=== PATIENT | male | born 1960 | race Caucasian/White ===

== ENCOUNTER → 2024-06-22 11:33 | Outpatient (REF) | payer SELFPAY ==
[2024-06-22 12:56] LABS: Hepatitis B Surface Antigen Negative (Negative)
[2024-06-22 13:05] LABS: HIV Combo Negative (Negative)
[2024-06-22 13:13] LABS: Hepatitis C Antibody Negative (Negative)
== END ==
LOC: CLAB 11:33
PROVIDERS: ATTENDING PHYSICIAN Surgery
DX: Z77.21 Contact with and (suspected) exposure to potentially hazardous body fluids (principal)
CPT/HCPCS: 82365; 86803; 87340; 87389

== ENCOUNTER 2024-07-02 12:38 | Inpatient (IN) | payer MEDICARE, BC, SELFPAY ==
[2024-07-02] VITALS (19 sets, daily range): BP systolic 86–115; BP diastolic 52–65; BMI 26.5; BMI 26.3
--- NOTE | 2024-07-02 09:13 | ED.GENMED ---
History of Present Illness
General
Chief Complaint: Urinary Symptoms
Source: patient
Time Seen by Provider: 07/02/24 08:47
History of Present Illness
History of Present Illness:
63yoM with a history of hyperlipidemia and kidney stones presenting with his for evaluation of a fever. Patient had a double ureteral stent placement [address] York. He had a Ayala catheter in place up until 6 days ago. He started
to feel unwell 2 days ago. He is presenting with fevers up to 101.8 at home with associated rigors. He also reports R sided flank pain with urination. He has not urinated much over the past 48 hours and is only able to urinate small dribbles at a
time. Additionally, he has not been eating or drinking much since his symptoms began.
Urine culture from 06/07/24 grew out mccollum sensitive enterococcus faecalis. He was on Macrobid up until his catheter was removed earlier this week.
Phy Exam
Physical Exam
Physical Exam:
Ill appearing, pale, non-toxic
General Physical Exam
General Presentation: mild distress
General age: appears stated age
General Skin: warm and dry
General Mental: alert
ENT Exam
ENT Exam: normocephalic
Cardiovascular Exam
Cardiovascular Exam: tachycardia
Pulmonary Exam
Pulmonary Exam: lungs clear, no respiratory distress, no rales, no crackles and no wheezing
Gastrointestinal Exam
Gastrointestinal Exam: soft, non distended and tender (+Tenderness to suprapubic region. No rebound or guarding. )
[place] Coma Scale
Eye Opening: Spontaneous
Verbal Response: Oriented
Motor Response: Obeys Commands
GCS Total Score: 15
Skin Exam
Skin Exam: warm/dry
Psychiatric Exam
Psychiatric Exam: normal mood/affect
Sepsis
Sepsis Screening
Sepsis Assessment: Severe Sepsis
Sepsis Screening: Lactate >2mmol/L
Sepsis Screen
Sepsis Screen: Severe Sepsis
Date: 07/02/24
Time: 14:48
Course
Orders/Labs/Results
Orders:
Orders
07/02/24 08:56
Bladder Scan- Treatment ONCE
Cardiac Monitoring- Treatment ONCE
Ayala Placement- Treatment ONCE
Reason for insertion: Acute Retention
07/02/24 08:57
Electrocardiogram (*1) Urgent
Reason for Study: Other
Other Reason for Exam: sepsis
EKG- Treatment ONCE
0.9% Sodium Chloride 1000 ml [Nss] 2,000 ml IV BOLUS
07/02/24 08:58
CT Abd/pelvis W Iv Cont Urgent
Comment:
Reason For Exam: R flank pain, fever, s/p ureteral stent placement
Acetaminophen [Tylenol] 1,000 mg PO NOW STA
07/02/24 09:04
Complete Blood Count/With Diff Urgent
Lactic Acid Q4H
Comment: CANCEL 2nd LACTIC ACID IF 1st LACTIC ACID IS LESS THAN 2
Manual Differential Urgent
PTT Urgent
Prothrombin Time Urgent
Blood Culture Routine
ROLAND Source: Blood/Venous
Specimen Description:
Blood Culture Urgent
ROLAND Source: Blood/Venous
Specimen Description:
07/02/24 09:25
Comprehensive Metabolic Panel Urgent
Procalcitonin Urgent
07/02/24 09:39
Cefepime HCl [Maxipime] 2,000 mg IV NOW STA
07/02/24 10:22
Urinalysis Reflex To Culture Urgent
Date Specimen was Collected: 07/02/24
Time Specimen was Collected: 10:21
Urine Microscopic Reflex Cult Urgent
Urine Culture Urgent
ROLAND Source: U
Specimen Description:
Date Specimen was Collected: 07/02/24
Time Specimen was Collected: 10:21
07/02/24 11:01
Vancomycin [Vancocin] 2,000 mg 0.9% Sodium Chloride 500 ml [Nss] 500 ml IV NOW
07/02/24 11:24
0.9% Sodium Chloride 500 ml [Nss] 500 ml IV BOLUS
07/02/24 12:14
Admit/Transfer Patient As Directed
Co-Sign Provider:
Level of Care: Inpatient admission
Assign to:: IMU- Intermediate Care
Physician / Group: [facility]
Diagnosis: Sepsis, Pyelonephritis
Reason for Hospitalization: Sepsis, Pyelonephritis
Expected length of stay greater than two midnights?: Yes
ELOS- Estimated Length of Stay in days: 3
I certify the patient meets the requirements for IP care: Yes
PRN Pain Medication Management As Directed
May give lesser potent ordered pain med per pt: Yes
preference::
Protocol:: Medication orders for pain may be administered in a
manner that supports deferring to patient preference
when the pt is:
- Requesting an ordered lesser potent pain medication.
Least to most potent pain medications are defined
as: acetaminophen < NSAID < tramadol < opioids
(morphine, oxycodone, hydromorphone).
- Requesting a lesser dose of the same medication IF
ORDERED.
- Requesting a less intrusive route of administration
if both routes are prescribed by the provider (PO <
IV).
07/02/24 12:15
Code Status As Directed
Resuscitation Status: Full Code
07/02/24 13:14
Lactic Acid Q4H
Comment: CANCEL 2nd LACTIC ACID IF 1st LACTIC ACID IS LESS THAN 2
Abnormal Lab Results
07/02/24 07/02/24 07/02/24
09:04 09:25 10:22
WBC 24.3 H 10^3/uL
(4.8-10.8)
RBC 4.45 L 10^6/uL
(4.70-6.10)
Hct 38.4 L %
(39.0-52.0)
Abs Neuts (Manual) 21.8 H 10^3/uL
(1.4-6.5)
Band Neutrophils 16 H %
(0-3)
Lymphocytes (Manual) 3 L %
(20-51)
PT 17.0 H Sec
(11.4-14.6)
BUN 36 H mg/dl
(9-20)
Glucose 142 H mg/dl
(70-99)
Lactic Acid 2.6 H mmol/L
(0.7-2.0)
Total Protein 6.2 L g/dl
(6.3-8.2)
Procalcitonin 4.92 H* ng/ml
(0.0-0.25)
Ur Occult Blood Reflex 4+ A
(Negative)
Leukocyte Esterase Rfl 2+ A
(Negative)
Urine RBC >100 A /HPF
(0-2)
Urine WBC (Reflex) 40-50 A /HPF
(0-5)
Urine Bacteria (Reflex) Moderate A
(Negative)
Urine Albumin (Reflex) 1+ A
(Neg - Trace)
07/02/24 09:04
07/02/24 09:25
Vital Signs
Initial and Last Documented VS:
Initial Vital Signs
Temp Pulse Resp BP Pulse Ox
103 F H 102 18 94/61 95
07/02/24 08:42 07/02/24 08:42 07/02/24 08:42 07/02/24 08:42 07/02/24 08:42
Last Documented Vital Signs
Temp Pulse Resp BP Pulse Ox
99.1 F 85 18 98/65 97
07/02/24 14:00 07/02/24 11:27 07/02/24 11:27 07/02/24 11:27 07/02/24 11:27
MDM/Problems Addressed
Differential Diagnosis Includes:
63yoM here with fever, rigors, and decreased urine output x 2 days. Also having R flank pain with urination. Recent bilateral ureteral stent placement 11 days ago. He is febrile to 103 on arrival. BP 94/61. Remainder of vitals stable. He is ill
appearing but non-toxic. Differential diagnosis includes but is not limited to: UTI, pyelonephritis, infected stone, sepsis, stent malfunction
Initial ED plan: Check septic workup including lactate, procalcitonin, blood cultures. Will place Ayala catheter given urinary retention symptoms. Check CT abdomen. Tylenol and 2L IV fluid bolus ordered.
*Critical Care Note
Total Time (30-74mins, 75-104mins- exclusive of procedures): Not Applicable
Update Note
Update Note:
Labs reveal a WBC of 24 with 16% bands. Lactate 2.6. Procal 4.9. UA with 40-50 WBC and moderate bacteria. CT shows evidence of R pyelonephritis. No hydronephrosis seen. IV cefepime and vancomycin ordered. He received 30cc/kg of IV fluids. Case
discussed with urology and he was admitted for further management.
ED Attending Note
-
Portions of this chart may have been created with voice recognition software.� Occasional wrong word or��sound alike� substitutions may have occurred due to the inherent limitations of voice recognition software.
Discharge Plan
Departure
Patient Disposition: Admit
Date of Disposition: 07/02/24
Time of Disposition: 11:26
Presentation/result/management discussed w/ accepting MD/DO: Hospitalist
Discharge Problem:
Pyelonephritis of right kidney, Sepsis
Interventions
Interventions:
*Risk Screen - Suicide Last Done: 07/02/24 09:25
*General Assessment Last Done: 07/02/24 09:25
*Neglect/Abuse Screening Last Done: 07/02/24 09:25
*ED COVID-19 Vaccine History Last Done: 07/02/24 14:26
ED-Male Genitourinary Assessment Last Done: 07/02/24 09:25
[2024-07-02] MEDS: NSS 2000 IV (09:23)
[2024-07-02 09:31] LABS: Lactic Acid 2.6 mmol/L (0.7-2.0)
[2024-07-02 09:36] LABS: APTT 27.8 Sec (23.4-35.0)
[2024-07-02 09:37] LABS: Hematocrit 38.4 % (39.0-52.0); Hemoglobin 13.8 g/dL (13.0-18.0); Mean Corp Hgb Conc. 35.9 g/dL (33.0-37.0); Mean Corpuscular Volume 86.3 fL (80.0-94.0); Mean Platelet Volume 9.4 fL (7.4-10.4); Platelet Count 190 10^3/uL (130-400); Red Blood Cell Count 4.45 10^6/uL (4.70-6.10); Red Cell Dist. Width 12.2 % (11.5-14.5); White Blood Cell Count 24.3 10^3/uL (4.8-10.8)
[2024-07-02 09:52] LABS: Absolute Neutrophils -Man Diff 21.8 10^3/uL (1.4-6.5); Band Neutrophils 16 % (0-3); Lymphocytes 3 % (20-51); Monocytes 7 % (2-9); Platelets Checked Yes; Segmented Neutrophils 74 % (42-75)
[2024-07-02 09:53] LABS: Normal RBC Morphology Yes; Total Cells Counted 100
[2024-07-02 10:05] LABS: ALT (SGPT) 26 U/L (0-50); AST (SGOT) 29 U/L (17-59); Albumin 3.8 g/dl (3.5-5.0); Alkaline Phosphatase 47 U/L (38-126); Blood Urea Nitrogen 36 mg/dl (9-20); Calcium 9.3 mg/dl (8.4-10.2); Carbon Dioxide 22 mmol/L (22-30); Chloride 103 mmol/L (98-107); Estimated Creatinine Clearance 59 ml/min; Glucose 142 mg/dl (70-99); Potassium 4.2 mmol/L (3.5-5.1); Sodium 137 mmol/L (135-145); Total Protein 6.2 g/dl (6.3-8.2); eGFR > 60.00
[2024-07-02] MEDS: MAXIPIME 2000 MG IV ×2 (10:13→18:38)
[2024-07-02 10:16] LABS: Procalcitonin 4.92 ng/ml (0.0-0.25)
[2024-07-02] MEDS: TYLENOL 1000 MG PO (10:23)
[2024-07-02 10:34] LABS: Urine Albumin 1+ (Neg - Trace); Urine Bilirubin Negative (Negative); Urine Character Slightly Cloudy (Clear); Urine Color Amber; Urine Glucose Negative (Negative); Urine Ketone Negative (Negative); Urine Leukocyte 2+ (Negative); Urine Nitrite Negative (Negative); Urine Occult Blood 4+ (Negative); Urine Specific Gravity 1.025 (<1.030); Urine Urobilinogen Negative (Neg - 1+)
[2024-07-02 10:47] LABS: Urine Mucus Few; Urine Squamous Cell 0-2 /LPF (Few)
[2024-07-02 10:48] LABS: Urine Amorphous Seen; Urine Red Blood Cell >100 /HPF (0-2); Urine White Cell 40-50 /HPF (0-5)
[2024-07-02 10:49] LABS: Urine Bacteria Moderate (Negative)
[2024-07-02] MEDS: VANCOCIN 540 MG IV (11:24)
--- NOTE | 2024-07-02 11:51 | CON.MD ---
Consultation - Medical
-
see dictated note
pt with known sig BPH/hx of prostate cancer/recent cysto- left ureteroscopy-stone treatment with stent and right ureteral stent placement in prep for furture stone procedure
required post op davies due to hematuria/prostate irritation
since davies removal- has had sig urgency/frequency and some flank pain
this am developed high fever
seen in ER- febrile/elevated WBC and lactic acid
davies placed- 150cc of concentrated urine
ct scan c/w with right pyelo- no hydro on either side
plan
urosepsis
stents in good position at this time
continue davies and med support
will follow
--- NOTE | 2024-07-02 12:17 | HPS.HSE ---
Family Physician
-
Family Physician: NOT KNOW UNKNOWN - PT DOES
Chief Complaint
-
Flank Pain, Chills
History of Present Illness
Patient is a 63y M with PMH significant for kidney stones and recent bilateral ureteral stents who presents to ED complaining of flank pain, nausea and fevers / chills. Patient underwent bilateral ureteral stents on 06/[address] York.
Following the procedure, he noted some bilateral flank discomfort. He had Ayala in place post-op until Wednesday of this week when it was removed. After Ayala removal, patient noted some difficulty urinating. He states that he had to strain to
produce small volumes of urine. He had flank pain / spasms associated with urination.
Wednesday evening, patient developed shaking chills and sweats. He had nausea but no emesis. He attempted to improve his symptoms with Tylenol; however, his symptoms persisted prompting him to present to the ED today for evaluation.
Medical History
Past Medical History
Past Medical History: Reports Other
Additional Past Medical History:
Nephrolithiasis
Chronic Prostatitis
Dyslipidemia
Past Surgical History: Reports Other
Additional Past Surgical History:
T&A
Bilateral Ureteral Stents (06/22/24)
Social History
Tobacco: Non-smoker
Alcohol: None
Drug: None
Personal:
Living: With Family
Family History
Family History: Not pertinent
Allergies / Home Medications
Allergies reflects when Allergies were last updated in [facility].
Home Medications with original date entered in [facility]
Allergy/Medication List:
Allergies
Allergy/AdvReac Type Severity Reaction Status Date / Time
levofloxacin Allergy Anaphylaxis Verified 07/02/24 08:43
Home Medications
Prostagenix 1 cap PO DAILY 07/02/24
acetaminophen 500 mg tablet (Tylenol Extra Strength) 1,000 mg PO Q6HPRN PRN mild pain 07/02/24
atorvastatin 10 mg tablet 10 mg PO DAILY 07/02/24
tamsulosin 0.4 mg capsule 0.4 mg PO HS 07/02/24
therapeutic multivitamin 1 tab PO DAILY 07/02/24
Review of Systems
-
History Source: Patient
A 12 point ROS was completed and negative except as noted: Yes
Constitutional: Reports Fever, Fatigue and Chills
EENT: Denies Sore Throat
Respiratory: Denies Cough or Trouble Breathing
Cardiac: Denies Chest Pain or Palpitations
Abdomen/GI: Reports Nausea; Denies Abdominal Pain, Vomiting, Diarrhea or Constipated
: Reports Dysuria, Flank Pain and Difficulty Voiding; Denies Frequency, Incontinence or Bleeding
Musculoskeletal: Denies Edema
Neurological: Denies Dizzy or Headache
Psych: Denies Depression or Anxiety
Physical Exam
Vital Signs
Vital Signs
Temp Pulse Resp BP Pulse Ox
103 F H 85 18 98/65 97
07/02/24 08:42 07/02/24 11:27 07/02/24 11:27 07/02/24 11:27 07/02/24 11:27
Physical Exam
General: Other (63y M in no acute distress.)
HEENT: Moist mucous membranes and PERRLA
Respiratory: Clear; No Wheezes, Rales or Rhonchi
Cardiac: S1/S2 and Regular Rhythm; No Murmur
GI: Soft, Non Tender, Non Distended and Normal Bowel Sounds
Genito-urinary: No costovertebral tender
Musculoskeletal: No Clubbing, No Cyanosis and No Edema
Neuro: AO x 3
Laboratory Results
-
07/02/24 09:04
07/02/24 09:25
Laboratory Results
PT 17.0 Sec (11.4-14.6) H 07/02/24 09:04
INR 1.40 07/02/24 09:04
APTT 27.8 Sec (23.4-35.0) 07/02/24 09:04
Lactic Acid 2.6 mmol/L (0.7-2.0) H 07/02/24 09:04
Total Bilirubin 1.0 mg/dl (0.2-1.3) 07/02/24 09:25
AST 29 U/L (17-59) 07/02/24 09:25
ALT 26 U/L (0-50) 07/02/24 09:25
Alkaline Phosphatase 47 U/L (38-126) 07/02/24 09:25
Impression/Plan
-
A/P: Patient is a 63y M with PMH significant for recent bilateral ureteral stents who presents to ED complaining of flank pain and chills.
Right Pyelonephritis
Sepsis secondary to the above
Bilateral Ureteral Stents
- Admit for further evaluation and treatment.
- Patient presents with fever, leukocytosis, hypotension and UA consistent with infection.
- IV abx with cefepime pending culture data.
- IVF support +/- pressors if needed to maintain perfusion.
- Supportive care including antipyretics, pain control, etc.
- Follow for clinical improvement.
- Appreciate Urology evaluation.
- Stents appear in good position - no evidence of obstruction / hydro.
- Ayala re-placed in the ED for 150cc dark urine.
- Continue tamsulosin. Maintain Ayala for now.
Dyslipidemia
- Can hold statin acutely. Resume on discharge.
DVT Prophylaxis: SCDs
Code Status: Full
[2024-07-02] MEDS: NSS 500 IV ×2 (13:00→22:03)
[2024-07-02 13:37] LABS: Lactic Acid 1.1 mmol/L (0.7-2.0)
[2024-07-02] MEDS: TYLENOL 650 MG PO ×2 (16:10→22:03)
[2024-07-02] MEDS: NSS 1000 IV ×2 (16:34→23:10)
[2024-07-02] MEDS: ZOFRAN 4 MG IV (17:18)
[2024-07-02] MEDS: STERILE WATER FOR INJECTION 10 ML IV (18:43)
[2024-07-02] MEDS: TORADOL 10 MG IV (18:45)
[2024-07-02] MEDS: FLOMAX 0.4 MG PO (22:03)
[2024-07-03] VITALS (14 sets, daily range): BP systolic 86–108; BP diastolic 55–73; BMI 26.8
[2024-07-03] MEDS: MAXIPIME 2000 MG IV ×2 (02:15→09:03)
[2024-07-03] MEDS: STERILE WATER FOR INJECTION 10 ML IV ×2 (02:15→09:03)
[2024-07-03 04:46] LABS: Hematocrit 30.7 % (39.0-52.0); Hemoglobin 10.8 g/dL (13.0-18.0); Mean Corp Hgb Conc. 35.2 g/dL (33.0-37.0); Mean Corpuscular Hgb 31.3 pg (27.0-31.0); Mean Platelet Volume 9.7 fL (7.4-10.4); Platelet Count 135 10^3/uL (130-400); Red Blood Cell Count 3.45 10^6/uL (4.70-6.10); Red Cell Dist. Width 12.7 % (11.5-14.5); White Blood Cell Count 15.9 10^3/uL (4.8-10.8)
[2024-07-03 05:16] LABS: Blood Urea Nitrogen 32 mg/dl (9-20); Calcium 8.1 mg/dl (8.4-10.2); Carbon Dioxide 20 mmol/L (22-30); Chloride 110 mmol/L (98-107); Estimated Creatinine Clearance 71 ml/min; Glucose 119 mg/dl (70-99); Potassium 4.4 mmol/L (3.5-5.1); Sodium 137 mmol/L (135-145); eGFR > 60.00
[2024-07-03] MEDS: NSS 1000 IV ×3 (05:32→17:57)
--- NOTE | 2024-07-03 07:00 | W.PN.URO.CBU ---
Today's Communication / Plan
-
continue medical support/davies and stents
Assessment / Plan
-
urosepsis
CT with no emergent findings
continue medical support/davies and iv antibx
await cx results
Diagnosis
-
Date of Service: July 03, 2024
-
Patient Diagnosis:
s/p cysto/left ureteroscopy/laser litho and stent- right ureteral stent
readmit with urosepsis
Subjective
-
feeling a little better
temp and wbc down
bp still low
good UO
Objective
-
Vital Signs
Temp Pulse Resp BP Pulse Ox
99.3 F 65 26 91/68 94
07/03/24 03:10 07/03/24 06:00 07/03/24 06:00 07/03/24 06:00 07/03/24 06:00
Intake and Output
07/02/24 07/03/24 07/04/24
06:59 06:59 06:59
Intake Total 1350 / 1350
Output Total 1275 / 1275
Balance 75 / 75
Intake:
IV fluids (Total) 1350 / 1350
Output:
Urine, Davies 1275 / 1275
Urine, Voided 0 / 0
Laboratory Results
07/03/24 04:21
07/03/24 04:21
Review of Systems
-
Constitutional: Fatigue and Night Sweats
Respiratory: No Symptoms
Cardiac: No Symptoms
Abdomen/GI: Nausea
: Other (davies)
Physical Exam
-
General - no acute distress
Genitalia - davies
--- NOTE | 2024-07-03 07:49 | W.PN.HOSP.TC ---
Addendum entered and electronically signed by Lev Fernandez MD 07/03/24 21:32:
Attending Addendum-
I saw and evaluated the patient. I reviewed the resident�s note and agree with findings and plan as documented in the resident�s note. Sub: feels fatigued but somewhat stronger. seen with present. febrile over last 24 hours. Full 12 point ROS
reviewed and negative except as documented Exam: Vitals reviewed in chart GEN-nad heart RRR lungs clear abd soft - davies draining clear yellow urine LE no edema
Plan:
# Septic Shock secondary to Right Pyelonephritis
- urine cx- enterococcus sens P
- DC cefepime switch to Unasyn- day #1
- weaned off Levophed
- Appreciate Urology evaluation.
- follow CBC BMP daily
# Leukocytosis
- trending down
- repeat CBC in am
# Nephrolithiasis
- 06/22-cystoscopy, ureteroscopy and laser lithotripsy with bilateral ureteral stents Dr. York
- Stents appear in good position - no evidence of obstruction / hydro.
# Urinary Retention/BPH
- cont tamsulosin
- cont Davies for now
- TOV in 24 to 48 hours
# Dyslipidemia
- hold statin acutely. Resume on discharge.
DVT Prophylaxis: SCDs
Code Status: Full
Time spent coordinating care, review of plan of care with resident, personally reviewed records in EMR, med rec, consults, notes, labs, radiology, d/w nursing � 55 mins
Original Note:
Today's Communication/Plan
-
Assessment / Plan
Assessment / Plan
Mr. Connor Kelly is a 63yo M pmh nephrolithiasis, recent b/l ureteral stent placement (06/22) who was admitted for urosepsis.
Sepsis secondary to R pyelonephritis w nephrolithiasis secondary to UTI s/p b/l ureteral stent placement
- davies replaced in ED
- U/a positive fpr uti
- urine culture: Enterococcus species
- blood cx pending
- CT: heterogeneous enhancement at upper pole of R kidney, suggests pyelonephritis. 5 mm nonobstructing calculus at lower pole of R kidney. b/l double-J ureteral stents, no hydronephrosis. b/l L5 spondylolysis, grade 1 spondylolisthesis of L5 on S1
- 1 day cefepime, switch to unasyn for Enterococcus sp. coverage
- urology following
- IV abx, IVF, antipyretics
HLD
- hold statin
DVT prophylaxis
- SCDs
Code status: FULL CODE
Diet: Regular
Anticipated Discharge: > 48 hours
Subjective/Interval History
-
Date of Service: July 03, 2024
Mr. Connor Kelly is a pleasant 63yo M h nephrolithiasis, recent b/l ureteral stent placement (06/22) who was admitted 07/02 for sepsis. Overall, he feels 'blah.' Initially had some hematuria and dysuria. Now, +fever, +SOB, +cough, +N, +D, +'wet
farts,' -V, -dysuria, -hematuria, -edema.
Objective Data
-
Labs:
Laboratory Results
07/03/24
04:21
WBC 15.9 H
Hgb 10.8 L D
Hct 30.7 L
Plt Count 135 D
Sodium 137
Potassium 4.4
Chloride 110 H
Carbon Dioxide 20 L
BUN 32 H
Creatinine 1.0
Glucose 119 H
Calcium 8.1 L
Vital Signs:
Vital Signs
Temp Pulse Resp BP Pulse Ox
99.3 F 65 26 91/68 94
07/03/24 03:10 07/03/24 06:00 07/03/24 06:00 07/03/24 06:00 07/03/24 06:00
I&O
07/02/24 07/03/24 07/04/24
06:59 06:59 06:59
Intake Total 1350 / 1350
Output Total 1275 / 1275
Balance 75 / 75
Review of Systems
-
History Source: Patient
All other systems: Reviewed and negative
Constitutional: Reports Fever; Denies Chills or Weakness
Respiratory: Reports Cough and Trouble Breathing; Denies Hemoptysis
Cardiac: Denies Chest Pain or Palpitations
Abdomen/GI: Reports Nausea and Diarrhea (unformed); Denies Vomiting or Constipated
Genitourinary: Denies Dysuria, Frequency, Urgency or Bleeding
Neuro: Denies Dizzy or Headache
Physical Exam
-
General: Well Developed, Well Nourished and Conversant
Respiratory: Accessory Resp Muscle Use
Cardiac: Regular Rhythm and S1/S2; Negative Murmur, Rub or Gallop
GI: Soft, Nontender, Nondistended and Normal Bowel Sounds
Genito-urinary: Clear Urine and Davies
Musculoskeletal: No Cyanosis and No Edema
Skin: Warm and Dry
Neuro: AO x 3
Psych: Calm
[2024-07-03] MEDS: TYLENOL 650 MG PO ×2 (11:54→22:50)
[2024-07-03] MEDS: UNASYN IV ×2 (14:04→19:45)
[2024-07-03] MEDS: TORADOL 15 MG IV (16:24)
--- NOTE | 2024-07-03 16:31 | W.PN.UPDATE ---
Update Note
Progress Note Update
Discussed CT findings w/ patient and spouse this afternoon.
No bilateral hydronephrosis w/ well-positioned stents.
Non-obstructing right renal stone noted - patient wishes to have that electively treated as outpatient.
Plan:
- Continue IV antibiotics for pyelonephritis - ascending cUTI.
- Consider voiding trial when WBC normalizes in next 24-48 hrs inpatient.
- Plan for outpatient right ureteroscopy/laser lithotripsy in 2 weeks after clearance of infection.
--- NOTE | 2024-07-03 16:40 | PTCARENOTE ---
Patient c/o abd pain/lower back pain with chills/shakes; T 99.3 oral and 99.1 axillary. [place] text sent to Dr Ureña to update and request IVFs be renewed if needed.
--- NOTE | 2024-07-03 17:17 | CM ---
Patient with Dx Sepsis secondary to R pyelonephritis w nephrolithiasis secondary to UTI s/p b/l ureteral stent placement. Davies. Receiving IVF, IV Abx.
Spoke with patient who resides with his & son in a multistory house.
The patient has been independent in ADLs and ambulation.
The patient has no DME, prior VN.
PCP - Gato Morrow
Pharmacy - [facility]
Plan offer VN if davies remains at d/c.
Plan home.
[2024-07-03 18:18] LABS: ALT (SGPT) 40 U/L (0-50); AST (SGOT) 60 U/L (17-59); Albumin 2.6 g/dl (3.5-5.0); Alkaline Phosphatase 51 U/L (38-126); Direct Bilirubin 0.3 mg/dl (0.0-0.4); Total Bilirubin 0.7 mg/dl (0.2-1.3); Total Protein 4.9 g/dl (6.3-8.2)
[2024-07-03] MEDS: FLOMAX 0.4 MG PO (21:03)
--- NOTE | 2024-07-03 21:10 | PTCARENOTE ---
Pt c/o general malaise, but otherwise denies pain. Fever 100.2, denies chills. Pt instructed to alert this RN if symptoms/pain arises. Presents with flat affect, resting in bed with IVF running through R FA. Ayala intact, draining carol urine. Call
estrada within reach. Pt ringing appropriately.
[2024-07-04] VITALS (15 sets, daily range): BP systolic 96–126; BP diastolic 56–85; PULSE 58; O2SAT 92; BMI 27.7
[2024-07-04] MEDS: NSS 1000 IV ×3 (00:32→16:53)
[2024-07-04] MEDS: UNASYN IV ×4 (02:15→19:59)
[2024-07-04 05:49] LABS: Hematocrit 30.7 % (39.0-52.0); Hemoglobin 10.7 g/dL (13.0-18.0); Mean Corp Hgb Conc. 34.9 g/dL (33.0-37.0); Mean Corpuscular Hgb 31.7 pg (27.0-31.0); Mean Corpuscular Volume 90.8 fL (80.0-94.0); Mean Platelet Volume 9.9 fL (7.4-10.4); Platelet Count 127 10^3/uL (130-400); Red Blood Cell Count 3.38 10^6/uL (4.70-6.10); Red Cell Dist. Width 12.8 % (11.5-14.5); White Blood Cell Count 10.3 10^3/uL (4.8-10.8)
[2024-07-04 06:09] LABS: INR 1.35; PT 16.5 Sec (11.4-14.6)
--- NOTE | 2024-07-04 07:42 | W.PN.HOSP.TC ---
Addendum entered and electronically signed by Lev Fernandez MD 07/04/24 21:50:
Attending Addendum-
I saw and evaluated the patient. I reviewed the resident�s note and agree with findings and plan as documented in the resident�s note. Sub: continues to feels fatigued. continues to be febrile. has not urinated on own yet after davies removal. states
he had visual hallucination this am later classified as dreams. Full 12 point ROS reviewed and negative except as documented Exam: Vitals reviewed in chart GEN-nad heart RRR lungs clear abd soft - davies - removed LE no edema
Plan:
# Septic Shock secondary to Right Pyelonephritis s/p recent instrumentation
- urine cx- enterococcus sensitivities resulted
- cont Unasyn- day #2
- weaned off Levophed
- Appreciate urology evaluation.
- follow CBC BMP daily
# RLL PNA with associated pleural effusion
- repeat CXR personally reviewed
- check procal
- c/s ID for eval
- c/s IRAD for diagnostic and therapeutic thoracentesis
- cont current abx for now
- repeat labs in am
# Leukocytosis
- resolved
- repeat CBC in am
# Transaminitis
- check acute hep panel
- repeat CMP in am and trend
- related to unasyn?
# Nephrolithiasis
- 06/22-cystoscopy, ureteroscopy and laser lithotripsy with bilateral ureteral stents Dr. York
- Stents appear in good position - no evidence of obstruction / hydro
- f/u 2-3 weeks for stent removal
# Urinary Retention/BPH
- cont tamsulosin
- DC davies 07/04
- TOV underway
# Dyslipidemia
- hold statin acutely. Resume on discharge.
DVT Prophylaxis: SCDs
Code Status: Full
Time spent coordinating care, review of plan of care with resident, personally reviewed records in EMR, med rec, consults, notes, labs, radiology, d/w nursing � 59 mins
Original Note:
Today's Communication/Plan
-
Assessment / Plan
Assessment / Plan
Mr. Connor Kelly is a 63yo M h nephrolithiasis, recent b/l ureteral stent placement (06/22) who was admitted for urosepsis.
Septic secondary to R pyelonephritis w nephrolithiasis secondary to UTI s/p b/l ureteral stent placement
- davies replaced in ED
- U/a positive fpr uti
- urine culture: Enterococcus species, sensitivities pending
- blood cx pending
- CT: heterogeneous enhancement at upper pole of R kidney, suggests pyelonephritis. 5 mm nonobstructing calculus at lower pole of R kidney. b/l double-J ureteral stents, no hydronephrosis. b/l L5 spondylolysis, grade 1 spondylolisthesis of L5 on S1
- 1 day cefepime, switch to unasyn for Enterococcus sp. coverage
- weaned off of levophed
- urology following
- IV abx, antipyretics
- IVF discontinued bc pt is hemodynamically stable and tolerating PO water intake
- cbc, bmp
Leukocytosis
- WBC 24.3 on 07/02, now 10.3. Normalized
Anemia, thrombocytopenia
- Hb 13.8 on 07/02, now 10.7
- plt 190 on 07/02, now 127
- monitor for bleeding
- monitor w cbc
Nephrolithiasis
- 06/22 - cystoscopy, uteroscopy, laser lithotripsy (10mm calculus) w b/l ureteral stents placed by Dr. York
- f/u outpatient for elective treatment of nonobstructive calculus. In 2-3 weeks after infection is cleared
Urinary retention secondary to BPH
- continue tamsulosin
- davies d/c'ed by urology
HLD
- hold statin acutely. resume on d/c
DVT prophylaxis
- SCDs
Code status: FULL CODE
Diet: Regular
Anticipated Discharge: > 48 hours
Subjective/Interval History
-
Date of Service: July 04, 2024
Mr. Connor Kelly is a pleasant 63yo M [facility] nephrolithiasis, recent b/l ureteral stent placement (06/22) who was admitted 07/02 for sepsis. Overall, he still feels 'blah.' Spiked a 100.8F fever overnight, went bradycardic to the 40s in his sleep.
+visual hallucinations: ppl in [facility] preparing a dialysis machine in a grassy field, saw his phone on his chest when it was not there, and himself traveling. No audio hallucinations. Feels a stomach discomfort, he believes it is from retained
fluid. This has improved since the davies was replaced. B/l 3/10 back pain in the thoracolumbar region. Was sharp at first, but has improved. +fever, +chills, +SOB, +cough, +N, -V, -D, -C, -dysuria, -hematuria, -DOBBINS, -lightheadedness
RN concerned he is fluid overloaded.
Objective Data
-
Labs:
Laboratory Results
07/04/24 07/04/24
05:01 05:02
WBC 10.3
Hgb 10.7 L
Hct 30.7 L
Plt Count 127 L
PT 16.5 H
INR 1.35
Vital Signs:
Vital Signs
Temp Pulse Resp BP Pulse Ox
99.5 F 49 25 113/73 95
07/04/24 03:00 07/04/24 06:00 07/04/24 06:00 07/04/24 06:00 07/03/24 20:05
I&O
07/03/24 07/04/24 07/05/24
06:59 06:59 06:59
Intake Total 1350 / 1350 1920 / 1920
Output Total 1275 / 1275 950 / 950
Balance 75 / 75 970 / 970
Review of Systems
-
History Source: Patient
All other systems: Reviewed and negative
Constitutional: Reports Fever and Chills
Respiratory: Reports Cough and Trouble Breathing
Cardiac: Reports No Symptoms
Abdomen/GI: Reports Abdominal Pain and Nausea
Genitourinary: Reports Flank Pain
Musculoskeletal: Reports Other (back pain)
Skin: Reports No Symptoms
Physical Exam
-
General: Well Developed
HEENT: Normocephalic, Atraumatic and Moist Mucous Membranes
Respiratory: Rhonchi (bibasilar)
Cardiac: Regular Rhythm and S1/S2
GI: Soft, Nontender, Nondistended and Normal Bowel Sounds
Genito-urinary: No Costovertebral Tender, Clear Urine and Davies
Musculoskeletal: No Cyanosis and No Edema
Skin: Warm, Dry, IV Access / Catheter Site and Other (skin hot over the thoracolumbar area, increased hypertonicity in paraspinal mm. and b/l QL)
Neuro: Awake and AO x 3
--- NOTE | 2024-07-04 08:26 | W.PN.URO.CBU ---
Today's Communication / Plan
-
D/c Ayala catheter this AM (ordered)
Continue tamsulosin
Continue IV antibiotics pending UCx final S/S (Enteroccous)
Plan for right ULS + left stent removal as outpatient in 2-3 weeks
D/w patient and spouse.
Assessment / Plan
-
Urosepsis - clinically improving
Right pyelonephritis
Leukocytosis - resolved
BPH
Low risk prostate cancer on active surveillance
06/22: s/p left URS/LL/stone extraction/stent placement + right stent placement
CT w/ well-positioned bilateral ureteral stents, no obstructive uropathy, non-obstructing 5 mm right renal stone.
WBC normalized
Cr WNL
Diagnosis
-
Date of Service: July 04, 2024
-
Patient Diagnosis:
Urosepsis
Right pyelonephritis
BPH
Low risk prostate cancer on active surveillance
Post Op Day:
06/22: s/p left URS/LL/stone extraction/stent placement + right stent placement
Subjective
-
Low grade fever o/n.
Feeling better in last 48 hrs.
Objective
-
Vital Signs
Temp Pulse Resp BP Pulse Ox
99.0 F 51 28 112/70 95
07/04/24 07:30 07/04/24 08:00 07/04/24 08:00 07/04/24 08:00 07/03/24 20:05
Intake and Output
07/03/24 07/04/24 07/05/24
06:59 06:59 06:59
Intake Total 1350 / 1350 1920 / 1920
Output Total 1275 / 1275 950 / 950
Balance 75 / 75 970 / 970
Intake:
IV fluids (Total) 1350 / 1350 1800 / 1800
IV piggybacks 120 / 120
Output:
Urine, Ayala 1275 / 1275 950 / 950
Urine, Voided 0 / 0
Laboratory Results
07/04/24 05:02
Physical Exam
-
General - well developed, well nourished, no acute distress
Abdomen - soft, non-tender, non-distended
Genitalia - normal, Ayala catheter in place w/ clear UOP
Skin - warm & dry with no rash
Neuro - AOx3, no motor deficits
Extremities - no clubbing, no cyanosis, no edema
Care Review
Data Reviewed
Discussed with: Nursing and Family
CT Scan: Report Pers Reviewed and Image Pers Reviewed
[2024-07-04 10:58] LABS: ALT (SGPT) 199 U/L (0-50); AST (SGOT) 155 U/L (17-59); Albumin 2.5 g/dl (3.5-5.0); Alkaline Phosphatase 214 U/L (38-126); Blood Urea Nitrogen 21 mg/dl (9-20); Carbon Dioxide 22 mmol/L (22-30); Chloride 109 mmol/L (98-107); Estimated Creatinine Clearance 89 ml/min; Glucose 133 mg/dl (70-99); Potassium 3.8 mmol/L (3.5-5.1); Sodium 140 mmol/L (135-145); Total Bilirubin 0.6 mg/dl (0.2-1.3); Total Protein 4.8 g/dl (6.3-8.2); eGFR > 60.00
[2024-07-04 13:07] LABS: COVID-19 Antigen Negative (Negative)
--- NOTE | 2024-07-04 13:15 | PN.CDI ---
CDI
- -
CDI:
Physician Documentation Request
Admit Date: 07/02/24 12:38
Dear Doctor Jim/Resident ,
Please review the following and provide your response in the progress notes.
Clinical Indicators:
Pt admitted with sepsis /UTI/ Right Pyelonephritis
Clarify which of the following accurately represents the Suspected acuity of the (Right pyelonephritis ).
Acute
Chronic
Acute on Chronic
Other
Use of terms such as suspected, likely, concern for, or probable (associated with a specific diagnosis that is being evaluated, monitored, or treated as if it exists) are acceptable and can be coded in the inpatient setting, when documented at the
time of discharge.
Thank you,
Queenie Borrego RN
CDI Specialist
[place] Text
Please use your independent medical judgment in providing your response.
--- NOTE | 2024-07-04 13:20 | PN.CDI ---
CDI
- -
CDI:
Physician Documentation Request
Admit Date: 07/02/24 12:38
Dear Doctor Jim/Resident,
Please review the following and provide your response in the progress notes.
Clinical Indicators:
Pt admitted with sepsis /UTI/ Right Pyelonephritis
Renal functions are as below /Pt did get IVFs
Laboratory Tests
07/02/24 07/03/24 07/04/24
09:25 04:21 10:36
Creatinine 1.2 1.0 0.8
Clarify which of the following accurately represents the patient's renal status:
FLORINA
Other ( please specify)
Criteria for FLORINA*
1 Increase in serum creatinine by > or = to 0.3 mg/dL (> or = to 26.5 micromol/L) within 48 hours, OR
2 Increase in serum creatinine to > or = to 1.5 times baseline, which is known or presumed to have occurred within 7 days, OR
3 Urine volume < 0.5 nL/kg/hour for six hours
Use of terms such as suspected, likely, concern for, or probable (associated with a specific diagnosis that is being evaluated, monitored, or treated as if it exists) are acceptable and can be coded in the inpatient setting, when documented at the
time of discharge.
Thank you,
Queenie Borrego RN
CDI Specialist
[place] Text
Please use your independent medical judgment in providing your response.
*Source: Kidney Disease: Improving Global Outcomes (KDIGO) 2012
--- NOTE | 2024-07-04 13:24 | PN.CDI ---
CDI
- -
CDI:
Physician Documentation Request
Admit Date: 07/02/24 12:38
Dear Doctor Jim /Resident ,
Please review the following and provide your response in the progress notes.
Clinical Indicators:
Pt admitted with Pt admitted with sepsis /UTI/ Right Pyelonephritis treated with Cefepime switched to Unasyn
Documented per ED, 'Patient had a double ureteral stent placement [address] York. He had a Ayala catheter in place up until 6 days ago. He started to feel unwell 2 days ago....'
H&P, ' He had Ayala in place post-op until Wednesday of this week when it was removed. After Ayala removal, patient noted some difficulty urinating. He states that he had to strain to produce small volumes of urine. He had flank pain / spasms
associated with urination.'
Urology Consult, ' Urosepsis after urologic instrumentation....'
Please provide a diagnosis for the above findings/Treatment :
UTI due to /related to previous Ayala catheter
UTI due to related to recent instrumentation double J stent placement
Other ( please specify )
Use of terms such as suspected, likely, concern for, or probable (associated with a specific diagnosis that is being evaluated, monitored, or treated as if it exists) are acceptable and can be coded in the inpatient setting, when documented at the
time of discharge.
Thank you,
Queenie Borrego RN
CDI Specialist
[place] Text
Please use your independent medical judgment in providing your response.
--- NOTE | 2024-07-04 14:55 | PTCARENOTE ---
Assumed care of patient at beginning of this shift from previous RN. On initial rounds patient was noted to have crackles at b/l bases and c/o abdominal discomfort. NSS infusing at 150ml/hr. Discussed with resident; patient eating and drinking. IVF
later d/c'd. Covid test ordered and negative. CXR ordered; results pending. See worklist for full assessment and vital signs; see MAR for med administration.
[2024-07-04] MEDS: TYLENOL 650 MG PO (16:44)
--- NOTE | 2024-07-04 16:48 | PTCARENOTE ---
Addendum entered by Ana María Almazan RN 07/04/24 17:10:
Patient has voided a total of 350ml urine since davies d/c'd. IVF restarted as per Dr Ureña: NSS @ 125ml/hr. Patient updated.
Original Note:
Patient with temp 102.2. [place] text sent to Dr Ureña, Dr Braun and Dr York. Return text from Dr Ureña stated to keep him in IMU and they will consult ID; return text from Dr York stated can leave davies out as long as patient is comfortable with
voiding.
[2024-07-04] MEDS: FLOMAX 0.4 MG PO (19:59)
[2024-07-05] VITALS (10 sets, daily range): BP systolic 100–126; BP diastolic 58–85; BMI 28.7
[2024-07-05] MEDS: NSS 1000 IV ×2 (00:53→08:10)
[2024-07-05] MEDS: UNASYN IV ×2 (02:31→09:41)
[2024-07-05 03:58] LABS: Hematocrit 29.4 % (39.0-52.0); Hemoglobin 10.4 g/dL (13.0-18.0); Mean Corp Hgb Conc. 35.4 g/dL (33.0-37.0); Mean Corpuscular Volume 87.5 fL (80.0-94.0); Mean Platelet Volume 9.8 fL (7.4-10.4); Platelet Count 158 10^3/uL (130-400); Red Blood Cell Count 3.36 10^6/uL (4.70-6.10); Red Cell Dist. Width 12.7 % (11.5-14.5); White Blood Cell Count 10.4 10^3/uL (4.8-10.8)
[2024-07-05 04:21] LABS: Ammonia < 9 umol/L (9-30)
[2024-07-05 04:22] LABS: ALT (SGPT) 168 U/L (0-50); AST (SGOT) 83 U/L (17-59); Albumin 2.5 g/dl (3.5-5.0); Alkaline Phosphatase 285 U/L (38-126); Blood Urea Nitrogen 15 mg/dl (9-20); Calcium 8.1 mg/dl (8.4-10.2); Carbon Dioxide 22 mmol/L (22-30); Chloride 108 mmol/L (98-107); Estimated Creatinine Clearance 89 ml/min; Glucose 108 mg/dl (70-99); LDH 200 U/L (120-246); Potassium 3.7 mmol/L (3.5-5.1); Sodium 138 mmol/L (135-145); Total Bilirubin 0.8 mg/dl (0.2-1.3); Total Protein 4.8 g/dl (6.3-8.2); eGFR > 60.00
[2024-07-05 04:46] LABS: Procalcitonin 2.45 ng/ml (0.0-0.25)
--- NOTE | 2024-07-05 06:08 | PTCARENOTE ---
No acute changes overnight. Patient reports Abd discomfort has subsided. Pt voiding appropriately via urinal, IVF continue. SBA to BR for BM, steady gait. Afebrile overnight. NSR/SB on tele monitor. Call estrada within reach. Pt calls appropriately.
--- NOTE | 2024-07-05 07:27 | W.PN.HOSP.TC ---
Addendum entered and electronically signed by Lev Fernandez MD 07/05/24 22:17:
Attending Addendum-
I saw and evaluated the patient. I reviewed the resident�s note and agree with findings and plan as documented in the resident�s note. Sub: febrile over last 24 hours, urinating w/o issue. Full 12 point ROS reviewed and negative except as
documented Exam: Vitals reviewed in chart GEN-nad heart RRR lungs clear abd soft - non palp baldder LE no edema
Plan:
# Septic Shock secondary to Right Pyelonephritis s/p recent instrumentation
- resolved
- urine cx- enterococcus sensitivities resulted
- unasyn->doxy x 4 weeks
- weaned off Levophed
- Appreciate urology input
- c/s ID- appreciate input
- follow CBC BMP daily
# Prostatitis
- cont doxy x 4 weeks
# RLL PNA with associated pleural effusion
- repeat CXR personally reviewed
- procal trending down
- cont doxy, appreciate ID input
- c/s IRAD for diagnostic and therapeutic thoracentesis- not enough fluid to tap
- repeat labs in am
# Leukocytosis
- resolved
- repeat CBC in am
# Transaminitis
- check acute hep panel
- repeat CMP in am and trend
- related to unasyn- DC
# Nephrolithiasis
- 06/22-cystoscopy, ureteroscopy and laser lithotripsy with bilateral ureteral stents Dr. York
- Stents appear in good position - no evidence of obstruction / hydro
- f/u 2-3 weeks for stent removal
# Urinary Retention/BPH
- cont tamsulosin
- DC davies 07/04
- successful TOV
# Dyslipidemia
- hold statin acutely. Resume on discharge.
DVT Prophylaxis: SCDs
Code Status: Full
Time spent coordinating care, review of plan of care with resident, personally reviewed records in EMR, med rec, consults, notes, labs, radiology, d/w nursing and ID� 58 mins
Original Note:
Today's Communication/Plan
-
.
Assessment / Plan
Assessment / Plan
Mr. Connor Kelly is a 63yo M h nephrolithiasis, recent b/l ureteral stent placement (06/22) who was admitted for septic shock secondary to UTI.
Septic shock secondary to acute R pyelonephritis secondary to UTI s/p b/l ureteral stent placement
- urine culture: Enterococcus faecalis
- blood cx: no growth at 48h
- CT: heterogeneous enhancement at upper pole of R kidney, suggests pyelonephritis. 5 mm nonobstructing calculus at lower pole of R kidney. b/l double-J ureteral stents, no hydronephrosis. b/l L5 spondylolysis, grade 1 spondylolisthesis of L5 on S1
- concern UTI is secondary to urinary retention secondary to BPH vs renal calculus vs previous davies catheter vs recent ureteral stent placement
- weaned off of levophed
- 1 day cefepime
- Unasyn day 3
- urology following
- IV abx, IVF, antipyretics
- cbc, bmp
Pneumonia w pleural effusion
- SOB, cough, and new bibasilar crackles, fevers despite appropriate antibiotic therapy
- procalcitonin 4.92 on 07/02, now 2.45
- repeat COVID (-)
- CXR: small-moderate R pleural effusion w pneumonia. minimal L pleural effusion
- Thoracentesis not performed: insufficient fluid volume to safely perform procedure
- ID consulted
- incentive spirometer
Leukocytosis
- WBC 24.3 on 07/02, now 10.4. Normalized
Anemia, thrombocytopenia
- Hb 13.8 on 07/02, now 10.4
- plt 190 on 07/02, now 158
- concern for bleeding vs dilutional w IVF
- monitor for bleeding
- monitor w cbc
Transaminitis
- AST 83, ALT 168, ALP 285
- concerned for infectious hepatitis vs unasyn side effect vs organ damage secondary to septic shock
- hepatitis panel pending
Nephrolithiasis
- 06/22 - cystoscopy, uteroscopy, laser lithotripsy (10mm calculus) w b/l ureteral stents placed by Dr. York
- f/u outpatient for elective treatment of nonobstructive calculus. In 2-3 weeks after infection is cleared
Urinary retention secondary to BPH
- continue tamsulosin
- davies discontinued 07/04 by urology
HLD
- hold statin acutely. resume on d/c
DVT prophylaxis
- SCDs
Code status: FULL CODE
Diet: Regular
Anticipated Discharge: 24 - 48 hours
Subjective/Interval History
-
Date of Service: July 05, 2024
Mr. Connor Kelly is a pleasant 63yo M [facility] nephrolithiasis, recent b/l ureteral stent placement (06/22) who was admitted 07/02 for septic shock. Today, pt reports feeling '1 step below normal.' SOB and cough are improving. Increased urinary urgency
Objective Data
-
Labs:
Laboratory Results
07/05/24
03:46
WBC 10.4
Hgb 10.4 L
Hct 29.4 L
Plt Count 158 D
Sodium 138
Potassium 3.7
Chloride 108 H
Carbon Dioxide 22
BUN 15
Creatinine 0.8
Glucose 108 H
Calcium 8.1 L
Total Bilirubin 0.8
AST 83 H
ALT 168 H
Alkaline Phosphatase 285 H
Vital Signs:
Vital Signs
Temp Pulse Resp BP Pulse Ox
98.3 F 47 25 100/66 92
07/05/24 03:35 07/05/24 06:00 07/05/24 06:00 07/05/24 06:00 07/05/24 06:00
I&O
07/04/24 07/05/24 07/06/24
06:59 06:59 06:59
Intake Total 1920 / 1920 1460 / 1460
Output Total 950 / 950 2275 / 2275
Balance 970 / 970 -815 / -815
Review of Systems
-
History Source: Patient
All other systems: Reviewed and negative
Constitutional: Denies Fever or Chills
Respiratory: Reports Cough and Trouble Breathing; Denies Hemoptysis
Cardiac: Reports No Symptoms
Abdomen/GI: Reports No Symptoms
Neuro: Reports No Symptoms
Physical Exam
-
General: Well Developed, Well Nourished and Conversant
HEENT: Normocephalic, Atraumatic and Moist Mucous Membranes
Respiratory: Clear to Auscultation and Non Labored Respirations
Cardiac: Regular Rhythm, S1/S2 and Bradycardic; Negative Murmur, Rub or Gallop
GI: Soft, Nontender, Nondistended, Normal Bowel Sounds and No Hepatosplenomegaly
Genito-urinary: No Costovertebral Tender
Musculoskeletal: No Cyanosis and No Edema
Skin: Warm and Dry
Neuro: Awake and AO x 3
Psych: Calm
--- NOTE | 2024-07-05 08:49 | W.PN.UPDATE ---
Update Note
Progress Note Update
Chest US performed. Right pleural effusion is too small for safe thoracentesis, left is also too small. No procedure performed.
--- NOTE | 2024-07-05 10:55 | CON.ID ---
Consultation
-
Date/Time Consultation Requested: 07/04/24 17:19
Date/Time Consultation Performed: 07/05/24 10:56
Requesting Provider: Dr Ureña
Performing Provider: Dr Ray
Reason for Consultation: sepsis 2/2 UTI, spiking fevers despite abx
Chief Complaint / Past History
Chief Complaint
Flank Pain, Chills
History of Present Illness
Mr Kelly is a 63 year old male with history of renal stones and bilateral ureteral stent placement 06/22 with samson Ramirez removed tuesday 06/26 who presented here 07/02 for fevers, chills, flank pain, nausea, difficulty starting a stream of urine
and spasms/increased flank pain with urination. Of note 06/30 two days before arrival he started with the shaking chills, sweats, nausea, took tylenol however symptoms persisted. Note history of enterococcal UTI with PCP 03/27
Since arrival he was initially febrile to tmax of 103, fevers have persisted though nadirs are lower, BP is stable, wbc on arrivla 24 now 10.4, hgb 10.4, plt 158, on arrival L shift was noted - has not been repeated since, Cr initially 1.2 now 0.8,
alk phos with steady increase now 285, t bili 0.8, ast 83, alt 168, ammonia <9, procal 07/02 when cr 1.0 was 4.9, procal today with cr 0.8 was 2.4 about 50% improvement, UA >100 rbc and 40-50 wbcs and moderate bacteria, hep a/b/c serologies have been
sent, covid ag neg 07/04, chest US: small right pleural effusion, 07/04 CXR: small right effusion with likely atelectasis, 07/02 CT a/p with IV contrast: right upper pole of kidney enhancing suggesting pyelo, double J stents with no hydro, urine
culture 100K e faecalis. Says he was sleeping all day until today. Flank pain has resolved, no RUQ pain, had some dyspepsia that improved with icecream yesterday
Past History
Additional Past Medical History:
Nephrolithiasis
Chronic Prostatitis
Dyslipidemia
Additional Past Surgical History:
T&A
Bilateral Ureteral Stents (06/22/24)
Allergy History:
levofloxacin Allergy (Verified 07/02/24 08:43)
Anaphylaxis
Medications Reviewed: Yes
Social History
Tobacco: Non-Smoker
Alcohol: None
Drug: None
Family History
Family History: Not Pertinent
Review of Systems
Review of Systems
General: Fever and Chills
All systems: All other systems were reviewed and were negative
Vital Signs
Temp Pulse Resp BP Pulse Ox
99.1 F 51 22 126/81 95
07/05/24 07:58 07/05/24 10:00 07/05/24 10:00 07/05/24 10:00 07/05/24 10:52
Physical Exam
Physical Exam
Constitutional: No Acute Distress and Non-toxic
Cardiovascular: Regular Rate and S1/S2; Negative Murmur or Rub
Pulmonary: Clear and Symmetric; Negative Wheezes, Rales or Rhonchi
Gastrointestinal: Soft, Non Tender, Non Distended and Normal Bowel Sounds
Genito-Urinary: Negative Suprapubic Tenderness or CVA Tenderness
Skin: Warm and Dry; Negative Rash or Jaundice
Lab / Diagnostic Study Results
07/05/24 03:46
07/05/24 03:46
Total Counted 100 07/02/24 09:04
Abs Neuts (Manual) 21.8 10^3/uL (1.4-6.5) H 07/02/24 09:04
Segmented Neutrophils 74 % (42-75) 07/02/24 09:04
Band Neutrophils 16 % (0-3) H 07/02/24 09:04
Lymphocytes (Manual) 3 % (20-51) L 07/02/24 09:04
PT 16.5 Sec (11.4-14.6) H 07/04/24 05:01
INR 1.35 07/04/24 05:01
Lactic Acid 1.1 mmol/L (0.7-2.0) 07/02/24 13:14
Procalcitonin 2.45 ng/ml (0.0-0.25) H* 07/05/24 03:46
Ur Squamous Epith Cells 0-2 /LPF (Few) 07/02/24 10:22
Microbiology Results
Micro:
07/02/24 09:04 Blood Culture - Preliminary
Blood/Venous No Growth in 72 hours- Final report to follow
07/02/24 09:04 Blood Culture - Preliminary
Blood/Venous No Growth in 72 hours- Final report to follow
07/02/24 10:22 Urine Culture - Final
Urine Enterococcus faecalis
Urine Culture Final 07/04/24-1127
CC: Greater than 100,000 CFU/ML Enterococcus faecalis
Organism 1 Enterococcus faecalis
1. Enterococcus faecalis
M.I.C. RX
--------- ---
Ampicillin <=2 S
Gentamicin Synergy Screen <=500 S
Susceptible result indicates synergy is likely with a cell
wall active agent that is also susceptible
(e.g.ampicillin,penicillin,vancomycin)
Levofloxacin 2 S
Nitrofurantoin-Urine Only <=32 S
Tetracycline <=4 S
Vancomycin 4 S
Assessment / Plan
Pyelonephritis due to E faecalis
Chronic Prostatitis due to E faecalis
Persistent Fever
Resolved Leukocytosis
Transaminitis
Reported anaphylaxis due to levofloxacin
- patient started on effective antibiotics 07/03, would have reached steady state late afternoon 07/04 - expect fevers to resolve in the next day or so
- patients weight up 6 kg since arrival and bp stable since 07/03, suggest stopping IVF
- 07/02 blood cultures no growth at 72 hours
- 07/02 urine culture 100 K e faecalis - amp sensitive, doxy sensitive
- plan 4 weeks of treatment given recent history of outpatient UTI with e faecalis raising concern for chronic prostatitis
- would not trend procalcitonin further, patient not in shock, it is not validated for UTI
- LFTs increase mirrors starting unasyn - possibly a side effect; not currently in shock; will follow up viral hepatitis screen
- CXR most consistent with basilar atelectasis and small bilateral pleural effusions, US showed effusion too small to drain
- switched to doxycycline only - follow LFTs tomorrow and abdominal exam; doxycycline had much better penetration into the prostate than betalactams and there is concern for prostatitis
AW
[2024-07-05] MEDS: VIBRAMYCIN 100 MG PO ×2 (12:49→20:55)
--- NOTE | 2024-07-05 14:31 | W.PN.URO.CBU ---
Today's Communication / Plan
-
PO doxycycline x4 weeks per ID for Enterococcal prostatitis
Successful TOV
Continue tamsulosin
Plan for outpatient right ureteroscopic stone surgery + stent removal w/n 3-4 weeks
D/w patient
D/w ID.
Assessment / Plan
-
Patient Diagnosis:
Urosepsis
Enterococcal cUTI - suspected prostatitis source
BPH
Low risk prostate cancer on active surveillance
06/22: s/p left URS/LL/stone extraction/stent placement + right stent placement
CT w/ well-positioned bilateral ureteral stents, no obstructive uropathy, non-obstructing 5 mm right renal stone.
WBC normalized
Cr WNL
UCx: Enterococcus
BCx: NG
Diagnosis
-
Date of Service: July 05, 2024
-
Patient Diagnosis:
Urosepsis
Enterococcal cUTI - suspected prostatitis source
BPH
Low risk prostate cancer on active surveillance
Post Op Day:
06/22: s/p left URS/LL/stone extraction/stent placement + right stent placement
Subjective
-
Afebrile today.
Voiding comfortably.
Denies dysuria or hematuria.
Objective
-
Vital Signs
Temp Pulse Resp BP Pulse Ox
99.2 F 51 22 126/81 95
07/05/24 11:39 07/05/24 10:00 07/05/24 10:00 07/05/24 10:00 07/05/24 10:52
Intake and Output
07/04/24 07/05/24 07/06/24
06:59 06:59 06:59
Intake Total 1920 / 1920 1460 / 1460
Output Total 950 / 950 2275 / 2275 950 / 950
Balance 970 / 970 -815 / -815 -950 / -950
Intake:
Oral fluids 120 / 120
IV fluids (Total) 1800 / 1800 1160 / 1160
IV piggybacks 120 / 120 180 / 180
Output:
Urine, Ayala 950 / 950 300 / 300
Urine, Voided 1974 950 / 950
Laboratory Results
07/05/24 03:46
07/05/24 03:46
Physical Exam
-
General - well developed, well nourished, no acute distress
Abdomen - soft, non-tender, no CVAT
Genitalia - normal
Skin - warm & dry with no rash
Neuro - AOx3, no motor deficits
Extremities - no clubbing, no cyanosis, no edema
Care Review
Data Reviewed
Discussed with: Infectious Disease and Family
CT Scan: Report Pers Reviewed and Image Pers Reviewed
--- NOTE | 2024-07-05 16:56 | CM ---
Patient with Dx Septic shock secondary to acute R pyelonephritis secondary to UTI, Pneumonia w pleural effusion, anemia. Febrile since yesterday. Receiving PO Abx. PT 07/04; likely no needs.
CM continuing to follow.
Plan home.
--- NOTE | 2024-07-05 18:30 | PTCARENOTE ---
Patient arrived to unit. AAOX4, patient ambulated from WC to bed. independent. urinal at bedside. call estrada at bedside. patient denies pain at this time. will continue to monitor.
--- NOTE | 2024-07-05 18:36 | PTCARENOTE ---
Patient transferred to [facility]; report given to Beth.
[2024-07-05] MEDS: TYLENOL 650 MG PO (21:01)
[2024-07-05] MEDS: FLOMAX 0.4 MG PO (21:02)
[2024-07-06 06:00] VITALS: BMI 27.9
--- NOTE | 2024-07-06 07:19 | W.PN.HOSP.TC ---
Addendum entered and electronically signed by Lev Fernandez MD 07/06/24 22:49:
Attending Addendum-
I saw and evaluated the patient. I reviewed the resident�s note and agree with findings and plan as documented in the resident�s note. Sub: feels great. ready to go home, seen with . Full 12 point ROS reviewed and negative except as documented
Exam: Vitals reviewed in chart GEN-nad heart RRR lungs clear abd soft - non palp bladder LE no edema
Plan:
# Septic Shock secondary to Right Pyelonephritis s/p recent instrumentation
- resolved
- urine cx- enterococcus sensitivities resulted
- unasyn->doxy x 4 weeks
- weaned off Levophed
- Appreciate urology input
- c/s ID- appreciate input
# Prostatitis
- cont doxy x 4 weeks
# RLL PNA with associated pleural effusion
- cont doxy, appreciate ID input
- c/s [facility]AD for diagnostic and therapeutic thoracentesis- not enough fluid to tap
- repeat labs as op
# Leukocytosis
- resolved
# Transaminitis
- check acute hep panel-P
- resolving
# Nephrolithiasis
- 06/22-cystoscopy, ureteroscopy and laser lithotripsy with bilateral ureteral stents Dr. York
- Stents appear in good position - no evidence of obstruction / hydro
- f/u 2-3 weeks for stent removal and lithotripsy
# Urinary Retention/BPH
- cont tamsulosin
- DC davies 07/04
- successful TOV
# Dyslipidemia
- hold statin acutely. Resume on discharge.
DVT Prophylaxis: SCDs
Code Status: Full
Dispo DC home
Time spent coordinating care, DC planning, review of DC plan of care with resident, transition of care, review of records, med rec/scripts sent electronically, consults, notes, d/w consultants, nursing,CM and � 35 mins
Original Note:
Today's Communication/Plan
-
Assessment / Plan
Assessment / Plan
Mr. Connor Kelly is a 63yo M pmh nephrolithiasis, recent b/l ureteral stent placement (06/22) who was admitted for septic shock secondary to UTI.
Septic shock secondary to acute R pyelonephritis secondary to UTI s/p b/l ureteral stent placement
- urine culture: Enterococcus faecalis
- blood cx: no growth at 72h
- CT: heterogeneous enhancement at upper pole of R kidney, suggests pyelonephritis. 5 mm nonobstructing calculus at lower pole of R kidney. b/l double-J ureteral stents, no hydronephrosis. b/l L5 spondylolysis, grade 1 spondylolisthesis of L5 on S1
- concern UTI is secondary to urinary retention secondary to BPH vs renal calculus vs previous davies catheter vs recent ureteral stent placement
- weaned off of levophed
- 1 day cefepime, 3 days unasyn
- Doxycycline day 2
- urology following
- IV abx, IVF, antipyretics
- cbc, bmp
Chronic Prostatitis
- continue doxycycline for 4 weeks
Pneumonia w pleural effusion
- SOB, cough, and new bibasilar crackles, fevers despite appropriate antibiotic therapy
- procalcitonin 4.92 on 07/02, now 2.45
- repeat COVID (-)
- CXR: small-moderate R pleural effusion w pneumonia. minimal L pleural effusion
- Thoracentesis not performed: insufficient fluid volume to safely perform procedure
- ID consulted
- incentive spirometer
FLORINA secondary to septic shock
- Cr 1.2 on 07/02. Cr 0.8 on 07/05.
- 33% decrease in Cr within 7 days of admission
- resolved w ivf
Leukocytosis
- resolved
Anemia, thrombocytopenia
- Hb 13.8 on 07/02, now 10.9
- plt 190 on 07/02, now 188. resolved
- monitor w cbc
Transaminitis
- AST 83, ALT 168, ALP 285
- concern for infectious hepatitis vs unasyn side effect vs organ damage secondary to septic shock
- likely due to unasyn side effect combined w damage secondary to septic shock
- hepatitis panel pending
Nephrolithiasis
- 06/22 - cystoscopy, uteroscopy, laser lithotripsy (10mm calculus) w b/l ureteral stents placed by Dr. York
- f/u outpatient for elective treatment of nonobstructive calculus. In 2-3 weeks after infection is cleared
Urinary retention secondary to BPH
- continue tamsulosin
- davies discontinued 07/04 by urology
HLD
- hold statin acutely. resume on d/c
DVT prophylaxis
- SCDs
Code status: FULL CODE
Diet: Regular
Anticipated Discharge: Within 24 hours
Subjective/Interval History
-
Date of Service: July 06, 2024
Mr. Connor Kelly is a very pleasant 63yo M h nephrolithiasis, recent b/l ureteral stent placement (06/22) who was admitted for septic shock secondary to UTI. No acute events overnight.
Objective Data
-
Labs:
Laboratory Results
07/06/24
07:00
WBC Pending
Hgb Pending
Hct Pending
Plt Count Pending
Sodium Pending
Potassium Pending
Chloride Pending
Carbon Dioxide Pending
BUN Pending
Creatinine Pending
Glucose Pending
Calcium Pending
Total Bilirubin Pending
AST Pending
ALT Pending
Alkaline Phosphatase Pending
Vital Signs:
Vital Signs
Temp Pulse Resp BP Pulse Ox
99.3 F 59 16 108/60 93
07/05/24 22:57 07/05/24 22:57 07/05/24 22:57 07/05/24 22:57 07/05/24 22:57
I&O
07/05/24 07/06/24 07/07/24
06:59 06:59 06:59
Intake Total 1460 / 1460 1175 / 1175
Output Total 2275 / 2275 2650 / 2650
Balance -815 / -815 -1475 / -1475
Review of Systems
-
History Source: Patient
All other systems: Reviewed and negative
Constitutional: Denies Fever or Chills
Respiratory: Denies Cough or Trouble Breathing
Cardiac: Denies Chest Pain or Palpitations
Abdomen/GI: Denies Abdominal Pain, Nausea, Vomiting, Diarrhea or Constipated
Genitourinary: Denies Dysuria, Frequency, Flank Pain, Difficulty Voiding or Urgency
Physical Exam
-
General: Well Developed, Well Nourished and Comfortable
HEENT: Normocephalic, Atraumatic and Moist Mucous Membranes
Respiratory: Clear to Auscultation and Non Labored Respirations
Cardiac: Regular Rhythm and S1/S2; Negative Murmur, Rub or Gallop
GI: Soft, Nontender, Nondistended and Normal Bowel Sounds
Genito-urinary: No Costovertebral Tender
Musculoskeletal: No Cyanosis and No Edema
Skin: Warm and Dry
Neuro: AO x 3
Psych: Calm
[2024-07-06 07:40] VITALS: BP 122/72; BP 126/71; BP 132/74
[2024-07-06] MEDS: VIBRAMYCIN 100 MG PO (07:43)
[2024-07-06 08:17] LABS: Hematocrit 31.6 % (39.0-52.0); Hemoglobin 10.9 g/dL (13.0-18.0); Mean Corp Hgb Conc. 34.5 g/dL (33.0-37.0); Mean Corpuscular Hgb 30.7 pg (27.0-31.0); Mean Platelet Volume 10.1 fL (7.4-10.4); Platelet Count 188 10^3/uL (130-400); Red Blood Cell Count 3.55 10^6/uL (4.70-6.10); Red Cell Dist. Width 12.7 % (11.5-14.5); White Blood Cell Count 10.8 10^3/uL (4.8-10.8)
[2024-07-06 08:49] LABS: ALT (SGPT) 147 U/L (0-50); AST (SGOT) 56 U/L (17-59); Albumin 2.6 g/dl (3.5-5.0); Alkaline Phosphatase 259 U/L (38-126); Blood Urea Nitrogen 14 mg/dl (9-20); Calcium 8.2 mg/dl (8.4-10.2); Carbon Dioxide 26 mmol/L (22-30); Chloride 105 mmol/L (98-107); Estimated Creatinine Clearance 79 ml/min; Glucose 89 mg/dl (70-99); Potassium 3.7 mmol/L (3.5-5.1); Sodium 140 mmol/L (135-145); Total Bilirubin 0.9 mg/dl (0.2-1.3); eGFR > 60.00
--- NOTE | 2024-07-06 09:04 | PN.CDI ---
CDI
- -
CDI:
Physician Documentation Request
Admit Date: 07/02/24 12:38
Dear Doctor Jim/Resident,
Please review the following and provide your response in the progress notes.
Clinical Indicators:
Pt admitted with Pt admitted with sepsis /UTI/ Right Pyelonephritis treated with Cefepime switched to Unasyn now on doxycycline
Documented per H&P, ' Chronic Prostatitis...'
Urology progress note 07/05 ,' PO doxycycline x4 weeks per ID for Enterococcal prostatitis...'
Progress note 07/05 &07/06, ' Prostatitis...'
Clarify which of the following accurately represents the suspected acuity of the ( Prostatitis ).
Acute on Chronic
Chronic
Other ( please specify)
Use of terms such as suspected, likely, concern for, or probable (associated with a specific diagnosis that is being evaluated, monitored, or treated as if it exists) are acceptable and can be coded in the inpatient setting, when documented at the
time of discharge.
Thank you,
Queenie Borrego RN
CDI Specialist
[place] [facility]
Please use your independent medical judgment in providing your response.
--- NOTE | 2024-07-06 09:16 | PN.CDI ---
CDI
- -
CDI:
Physician Documentation Request
Admit Date: 07/02/24 12:38
Dear Doctor Jim/ Resident
Please review the following and provide your response in the progress notes.
Clinical Indicators:
Pt admitted with Pt admitted with Sepsis/Septic shock /UTI/ Right Pyelonephritis treated with Cefepime switched to Unasyn now on doxycycline
Progress note 07/05-07/06, ' Transaminitis....concerned for infectious hepatitis vs unasyn side effect vs organ damage secondary to septic shock....'
Pt had Septic shock requiring Levophed /IVFs
07/03/24 07/04/24 07/05/24
04:21 10:36 03:46
AST 60 H 155 H 83 H
ALT 199 H 168 H
07/06/24
07:00
AST
ALT 147 H
Please clarify the suspected etiology of the documented transaminitis :
Multifactorial due to Shock liver / Unasyn use
Unasyn use only
Other ( please specify)
Use of terms such as suspected, likely, concern for, or probable (associated with a specific diagnosis that is being evaluated, monitored, or treated as if it exists) are acceptable and can be coded in the inpatient setting, when documented at the
time of discharge.
Thank you,
Queenie Borrego RN
CDI Specialist
[place] [facility]
Please use your independent medical judgment in providing your response.
--- NOTE | 2024-07-06 11:25 | W.DCSUMMARY ---
Addendum entered and electronically signed by Lev Fernandez MD 07/06/24 22:50:
Read, reviewed, and agree. See same day progress note for additional details.
Kailash Fernandez MD
Original Note:
Documented by User: Mely Ureña DO, Resident 07/06/24 14:27
Discharge Summary
Discharge Data
Date of Admission: 07/02/24
Date of Discharge: 07/06/24
-
Pending Results: Yes
Additional Pending Results:
Hepatitis panel
Hospital Course
Mr. Connor Kelly is a 63yo M pmh nephrolithiasis, recent b/l ureteral stent placement (06/22) who was admitted 07/02 for septic shock secondary to UTI. Post-procedural davies removed 06/26. Pt unable to urinate, davies reinserted in ED. CT abdomen
concerning for R pyelonephritis, presence of 5 mm nonobstructing calculus, and well-placed b/l double-J ureteral stents. Evaluated by urology, no concern over b/l ureteral stents. Resuscitated w IVF, abx, and levophed. Levophed discontinued on
hospital day #2. Davies removed day 3. 1 day cefepime, 3 days unasyn. Urine culture grew Enterococcus faecalis. Concern over recurring fevers despite adequate abx coverage, so ID was consulted. Switched pt to doxycycline and recommends 4 weeks
doxycycline for chronic prostatitis. Pt afebrile >24 hours, hemodynamically stable. No issues with urination, including urinary retention, hematuria, and dysuria.
Discharge Plan
-
Patient Disposition: Home (Routine Discharge)
Discharge Diagnosis/Procedures: Sepsis secondary to UTI
Condition: Good
Activity Restrictions/Additional Instructions:
Please finish your 4 week course of antibiotics. Continue taking them even if you start to feel better.
Please follow up with Dr. York for your right uteroscopic stone surgery and stent removal.
Please return to the hospital if you experience new or worsening symptoms. This includes fevers, nausea, vomiting, passing out, worsening urinary symptoms.
Instructions: Urinary Tract Infection, Adult (DC), Bacterial prostatitis
Referrals:
Eyal York MD [Active] - in three to four weeks
UNKNOWN - PT DOES,NOT KNOW [Family Provider] -
Prescriptions:
New
doxycycline hyclate 100 mg Capsule
100 mg PO Q12 28 Days Qty: 56 0RF
Continued
atorvastatin 10 mg Tablet
10 mg PO DAILY
therapeutic multivitamin Tablet
1 tab PO DAILY
acetaminophen [Tylenol Extra Strength] 500 mg Tablet
1,000 mg PO Q6HPRN PRN (Reason: mild pain)
tamsulosin 0.4 mg Capsule
0.4 mg PO HS
Prostagenix capsule
1 cap PO DAILY
Discharge Orders:
Discharge Patient (As Directed); Ordered 07/06/24
Ordered By: Mely Ureña
Discharge Date and Time
Discharge Date/Time: 07/06/24 15:36
Print Language: WALLISIAN

Documented by User: Lev Fernandez MD 07/06/24 22:45
Discharge Summary
Discharge Data
Date of Admission: 07/02/24
Date of Discharge: 07/06/24
Discharge Plan
-
Patient Disposition: Home (Routine Discharge)
Discharge Diagnosis/Procedures: Sepsis secondary to UTI
Condition: Good
Activity Restrictions/Additional Instructions:
Please finish your 4 week course of antibiotics. Continue taking them even if you start to feel better.
Please follow up with Dr. York for your right uteroscopic stone surgery and stent removal.
Please return to the hospital if you experience new or worsening symptoms. This includes fevers, nausea, vomiting, passing out, worsening urinary symptoms.
Instructions: Urinary Tract Infection, Adult (DC), Bacterial prostatitis
Referrals:
Eyal York MD [Active] - in three to four weeks
UNKNOWN - PT DOES,NOT KNOW [Family Provider] -
Prescriptions:
New
doxycycline hyclate 100 mg Capsule
100 mg PO Q12 28 Days Qty: 56 0RF
Continued
atorvastatin 10 mg Tablet
10 mg PO DAILY
therapeutic multivitamin Tablet
1 tab PO DAILY
acetaminophen [Tylenol Extra Strength] 500 mg Tablet
1,000 mg PO Q6HPRN PRN (Reason: mild pain)
tamsulosin 0.4 mg Capsule
0.4 mg PO HS
Prostagenix capsule
1 cap PO DAILY
Discharge Orders:
Discharge Patient (As Directed); Ordered 07/06/24
Ordered By: Mely Ureña
Discharge Date and Time
Discharge Date/Time: 07/06/24 15:36
Print Language: WALLISIAN
--- NOTE | 2024-07-06 11:41 | CM ---
Patient seen bedside.
Patient denies home care needs.
IMM completed.
Plan: home with no needs, spouse will transport.
[2024-07-06 14:57] VITALS: BP 125/81
[2024-07-06 20:25] LABS: Hepatitis A IgM Antibody Negative (Negative); Hepatitis B Core Ab, IgM Negative (Negative)
[2024-07-06 20:49] LABS: Hepatitis B Surface Antigen Negative (Negative)
[2024-07-06 20:52] LABS: Hepatitis B Core Ab, Total Negative (Negative); Hepatitis B Surface Antibody Negative; Hepatitis C Antibody Negative (Negative)
[2024-07-07 00:19] LABS: Hepatitis A Antibody, Total Positive (Negative)
== END 2024-07-06 15:36 | disposition home or self-care (01) | DRG 871 ==
LOC: 4 WEST ACU 12:38
PROVIDERS: Physician Assistant; ADMITTING PHYSICIAN Hospitalist; ATTENDING PHYSICIAN Family Medicine; CONSULT PHYSICIAN Specialist; EMERGENCY PHYSICIAN Emergency Medicine
DX: A41.9 Sepsis, unspecified organism (principal); J18.9 Pneumonia, unspecified organism; R65.21 Severe sepsis with septic shock; T83.518A Infection and inflammatory reaction due to other urinary catheter, initial encounter; N10 Acute pyelonephritis; J98.11 Atelectasis; J90 Pleural effusion, not elsewhere classified; N17.9 Acute kidney failure, unspecified; R44.1 Visual hallucinations; N41.1 Chronic prostatitis; E78.5 Hyperlipidemia, unspecified; B95.2 Enterococcus as the cause of diseases classified elsewhere; R74.01 Elevation of levels of liver transaminase levels; T36.0X5A Adverse effect of penicillins, initial encounter; N40.1 Benign prostatic hyperplasia with lower urinary tract symptoms; R33.8 Other retention of urine; N20.0 Calculus of kidney; D64.9 Anemia, unspecified; D69.6 Thrombocytopenia, unspecified
CPT/HCPCS: 51702; 51798; 71046; 74177; 76604; 80053; 81003; 81015; 82140; 82248; 83605; 83615; 84145; 85025; 85027; 85610; 85730; 86704; 86705; 86706; 86708; 86709; 86803; 87040; 87077; 87086; 87186; 87340; 87811; 93005; 96374; 96375; 97116; 97162; 99285; Q9967

== ENCOUNTER → 2024-08-10 07:30 | Outpatient (REF) | payer MEDICARE, BC, SELFPAY | LOC: CLAB 07:30 | PROVIDERS: ATTENDING PHYSICIAN Surgery | DX: N13.2 Hydronephrosis with renal and ureteral calculous obstruction (principal) | CPT/HCPCS: 82365 ==

== ENCOUNTER → 2025-04-16 20:10 | Outpatient (REF) | payer MEDICARE, BC, SELFPAY | LOC: MRI 3T 20:10 | PROVIDERS: ATTENDING PHYSICIAN Surgery; FAMILY PHYSICIAN Internal Medicine | DX: C61 Malignant neoplasm of prostate (principal) | CPT/HCPCS: 72197; A9575 ==